=== PATIENT | male | born 1950 | race Caucasian/White ===

== ENCOUNTER 2019-04-06 07:31 | Day surgery (SDC) | payer MEDICARE, OTHER ==
[~2019-04-06 07:31] MED LIST: Dextrose 5%-0.45% NaCl 1,000 ML IV SCH; Midazolam 1 MG/ML 2 ML SDV ONE; fentaNYL 100 MCG/2 ML SDV ONE
[2019-04-06] MEDS ORDERED: fentaNYL 100 MCG/2 ML SDV IV ONE ×3 (07:32→08:01)
[2019-04-06] MEDS ORDERED: Midazolam 1 MG/ML 2 ML SDV IV ONE ×3 (07:32→08:02)
--- NOTE | 2019-04-06 14:38 | OR ---
DATE: 04/06/2019 PROCEDURE PERFORMED: Esophagogastroduodenoscopy and multiple pinch biopsies. INSTRUMENT USED: [id number]-[id number] Olympus video panendoscope. PREMEDICATIONS: Fentanyl 100 mcg intravenous and Versed 2 mg intravenous. The procedure was done under pulse oximetry, BP recording, and repair cameraman. INDICATION: The patient with long-standing heartburn, unexplained. Esophagogastroduodenoscopy is performed for detection of any active erosive lesions, Adams esophagus and/or malignancy also under consideration, H. pylori status to be determined, endoscopic hemostasis therapy if needed. DESCRIPTION OF PROCEDURE: The scope was passed with ease. Adequate visualization of the esophagus was made from proximal to distal areas. No upper esophageal lesions identified. No distal esophageal stricture. No uphill or downhill esophageal varices. No Addis-Grissom tear. No evidence of erosive esophagitis by Montgomery criteria. No esophageal polyp or tumor mass identified. Z-line was seen at around 40 cm distal to the oral verge, configuration consistent with grade 1 by ZAP classification. No proximal gastric varices noted. Gastric fundus examination by retroflexion showed no polypoid lesions. No gastric ulcer, malignant mass, or vascular ectasia identified. Less than 1 cm sized benign-appearing submucosal lesion was noted in the proximal antrum, multiple pinch biopsies were obtained and sent for histopathology. Duodenal bulb showed no ulcer. Visualized second part of the duodenum was unremarkable. Multiple pinch biopsies were taken from the gastric antrum, proximal body and sent for PyloriTek test for H. pylori and histopathology. No bleeding was noted from any of the visualized areas at the completion of examination. Photographs were taken of the duodenal bulb, gastric antrum, fundus, and distal esophagus. IMPRESSION: Gastric antral submucosal lesion. The patient tolerated the procedure well. [facility] /[id number]
[2019-04-06] MEDS ORDERED: Sodium Chloride 0.9% 10 ML Syringe FLUSH PRN (18:02)
--- NOTE | 2019-04-07 10:35 | EKG ---
04/06/2019 - LALA GUTIERREZ - Report reviewed. Rhythm one of atrial fibrillation with controlled ventricular rate. Q-waves in leads 2, 3, and AVF consistent with old inferior wall infarct. ST-T wave abnormalities of ischemia and/or digitalis effect noted. [facility] /[id number]
== END 2019-04-06 10:18 | disposition home or self-care (01) ==
LOC: DL.ENDO 07:31
PROVIDERS: ATTEND Internal Medicine Gastroenterology
DX: K29.50 Unspecified chronic gastritis without bleeding (principal); K21.9 Gastro-esophageal reflux disease without esophagitis; I10 Essential (primary) hypertension; E78.5 Hyperlipidemia, unspecified; M19.90 Unspecified osteoarthritis, unspecified site; E66.09 Other obesity due to excess calories; Z90.49 Acquired absence of other specified parts of digestive tract; Z79.899 Other long term (current) drug therapy; Z68.34 Body mass index [BMI] 34.0-34.9, adult
CPT/HCPCS: 43239; 87077; 93005; J2250; J3010; J7042

== ENCOUNTER → 2019-04-07 | Day surgery (SDC) | payer MEDICARE, OTHER ==
[~2019-04-07] MED LIST changes: +Midazolam 1 MG/ML 2 ML SDV IV ONE; +fentaNYL 100 MCG/2 ML SDV IV ONE
--- NOTE | 2019-04-07 13:23 | OR ---
DATE: 04/07/2019 PROCEDURE: Total colonoscopy. INSTRUMENT USED: [id number]-SP356M Olympus video colonoscope. PREMEDICATIONS: Fentanyl 100 mcg intravenous, Versed 3.5 mg intravenous, nasal O2 cannula. The procedure was done under pulse oximetry, BP recording, and spa therapist. INDICATION: The patient with progressive constipation, unexplained and not responsive to medical measures. Colonoscopic examination is done for detection of any polypoid lesions and removal, endoscopic hemostasis therapy if needed. DESCRIPTION OF PROCEDURE: Initial rectal exam was unremarkable. Rigid anoscopy showed small internal hemorrhoids without bleeding from them. The colonoscope was passed with ease up to the ileocecal area. Photographs were taken of the normal-appearing cecum identified by landmarks of appendiceal orifice and double- bulged ileocecal folds. No bleeding was noted from any of the visualized areas at the commencement of the examination. The bowel preparation was found to be adequate, [place] scale 2 in all the regions, total score of 6. No stricture. No vascular ectasia. No large isolated ulcerations seen. No evidence of diffuse inflammatory bowel disease in the form of friability, contact bleeding, or ulcerations. No polyp or tumor mass identified. Probing the proximal sides of folds and flexures using adequate distention and clearing up the stool material, withdrawal of the scope was made. Cecum to rectum time over 6 minutes. No bleeding was noted from any of the visualized areas at the completion of examination. IMPRESSION: Internal hemorrhoids. The patient tolerated the procedure well. [facility] /[id number]
== END | disposition home or self-care (01) ==
LOC: DL.ENDO 05:54
PROVIDERS: ATTEND Internal Medicine Gastroenterology
DX: K59.00 Constipation, unspecified (principal); K64.8 Other hemorrhoids
CPT/HCPCS: 45378; J2250; J3010; J7042; G0121

== ENCOUNTER 2020-01-01 16:09 | Emergency (ER) | payer MEDICARE, OTHER ==
--- NOTE | 2020-01-01 16:15 | EDM.PDOC ---
<Praker Lovell - Last Filed: 01/01/20 17:42> ED HPI GENERAL MEDICAL PROBLEM - General Chief Complaint: Chest Pain Stated Complaint: CHEST PAINS... Time Seen by Provider: 01/01/20 16:15 Source of Information: Reports: Patient, Old Records, RN, RN Notes Reviewed History Limitations: Reports: No Limitations - History of Present Illness INITIAL COMMENTS - FREE TEXT/NARRATIVE: Pt presents to ER from home by POV with c/o left sided chest pain coming and going about every 10 minutes on and off today. Denies exertional chest pain, shortness of breath, radiating pain, edema, palpitations, cough, or fever. He has a Hx of HTN, and chronic A-fib. anticoagulated with Coumadin. Current the pain is gone. Pain at max. intensity rated at 4/10. Denies Hx of NE, CAD, DM, or high cholesterol. Pt states he has been under a lot of stress since his unexpectedly one month ago. Onset: Today Duration: Intermittent, Recurring, Waxing/Waning Location: Reports: Chest Quality: Reports: Ache Severity: Mild Improves with: Reports: None Worsens with: Reports: None Associated Symptoms: Reports: No Other Symptoms Left Chest Pain Score (Numeric/FACES): 4 - Related Data Allergies Allergy/AdvReac Type Severity Reaction Status Date / Time No Known Allergies Allergy Verified 04/07/19 06:11 Home Meds: Home Meds amLODIPine Besylate [Amlodipine Besylate] 10 mg PO DAILY 02/20/18 [History] Multivitamin [Poly-Vitamin] 1 each PO DAILY 04/05/19 [History] Past Medical History - Past Health History Medical/Surgical History: Denies Medical/Surgical History HEENT History: Reports: None Cardiovascular History: Reports: Afib, Hypertension Respiratory History: Reports: None Gastrointestinal History: Reports: Chronic Constipation, Colon Polyp Genitourinary History: Reports: None Musculoskeletal History: Reports: Back Pain, Chronic, Fracture Other Musculoskeletal History: broke finger right hand ring Neurological History: Reports: None Psychiatric History: Reports: None Endocrine/Metabolic History: Reports: Obesity/BMI 30+, Other (See Below) Other Endocrine/Metabolic History: impaired fasting glucose Hematologic History: Reports: Other (See Below) Other Hematologic History: hyperuricemia Immunologic History: Reports: None Oncologic (Cancer) History: Reports: None Dermatologic History: Reports: None - Infectious Disease History Infectious Disease History: Reports: Measles - Past Surgical History HEENT Surgical History: Reports: None Cardiovascular Surgical History: Reports: None GI Surgical History: Reports: Cholecystectomy, Colonoscopy, EGD, Polypectomy Male Surgical History: Reports: None Endocrine Surgical History: Reports: None Musculoskeletal Surgical History: Reports: Knee Replacement Other Musculoskeletal Surgeries/Procedures:: bilateral knee replacement Dermatological Surgical History: Reports: None Social & Family History - Family History Family Medical History: Noncontributory - Tobacco Use Tobacco Use Status *Q: Never Tobacco User - Caffeine Use Caffeine Use: Reports: None - Alcohol Use Alcohol Use History: No - Recreational Drug Use Recreational Drug Use: No Drug Use in Last 12 Months: No - Living Situation & Occupation Living situation: Reports: , Alone ED ROS GENERAL - Review of Systems Review Of Systems: Comprehensive ROS is negative, except as noted in HPI. ED EXAM, GENERAL - Physical Exam Exam: See Below Exam Limited By: No Limitations General Appearance: Alert, No Apparent Distress, Anxious, Obese Eye Exam: Bilateral Eye: Normal Inspection Nose: Normal Inspection, Normal Mucosa, No Blood Throat/Mouth: Normal Inspection, Normal Lips, Normal Voice, No Airway Compromise Head: Atraumatic, Normocephalic Neck: Normal Inspection, Supple, Non-Tender, Full Range of Motion Respiratory/Chest: No Respiratory Distress, Lungs Clear, Normal Breath Sounds, No Accessory Muscle Use, Chest Non-Tender Cardiovascular: No Edema, No JVD, No Murmur, Irregularly Irregular GI/Abdominal: Normal Bowel Sounds, Soft, Non-Tender, No Organomegaly, No Distention, No Abnormal Bruit, No Mass Back Exam: Normal Inspection Extremities: Normal Inspection, Normal Range of Motion, Non-Tender, Normal Capillary Refill, No Pedal Edema Neurological: Alert, Oriented, CN II-XII Intact, Normal Cognition, Normal Gait, No Motor/Sensory Deficits Psychiatric: Normal Affect, Anxious Skin Exam: Warm, Dry, Intact, Normal Color, No Rash. No: Ecchymosis, Jaundice, Petechiae, Rash #1 Interpretation EKG Date: 01/01/20 Time: 16:20 Rhythm: A-Fib Rate (Beats/Min): 88 [place]: LAD-Left [place] Deviation P-Wave: Absent QRS: Other (Low voltage in frontal leads, RSR' V2) ST-T: Normal QT: Normal Comparison: No Change EKG Interpretation Comments: Chronic A-fib. No acute ischemic changes. Course - Radiology Interpretation Free Text/Narrative:: [facility] [place] [facility] Final Radiology Report Call: [phone] assistance Online chat: [email or web address] Name: LALA GUTIERREZ Age: 69Years M Date: 01/01/2020 SSN: -- : [id number] Study: CR CHEST 1V FRONTAL Requesting Physician: PARKER LOVELL Images: 1 Addl Studies: Provided Clinical History: chest pain Contrast: Contrast Medium: Contrast Amount: Contrast Method: CONFIDENTIALITY STATEMENT This report is intended only for use by the referring physician, and only in accordance with law. If you received this in error, call [phone]. Page 1 of 1 PROCEDURE INFORMATION: Exam: XR Chest, 1 View Exam date and time: 01/01/2020 5:13 PM Age: 69 years old Clinical indication: Other: Ches pain; Additional info: Chest pain TECHNIQUE: Imaging protocol: XR of the chest Views: 1 view. COMPARISON: No relevant prior studies available. FINDINGS: Lungs: Unremarkable. No consolidation. Pleural space: Unremarkable. No pleural effusion. No pneumothorax. Heart/Mediastinum: Unremarkable. No cardiomegaly. Bones/joints: Unremarkable. IMPRESSION: No acute findings. Thank you for allowing us to participate in the care of your patient. Dictated and Authenticated by: Shin Betancourt MD 01/01/2020 5:19 PM Central Time ([place] & [place]) - Re-Assessments/Exams Free Text/Narrative Re-Assessment/Exam: 01/01/20 17:43 Pt will be kept as extended ER with repeat Troponin and EKG at 2030HRS for chest pain rule out. Care of pt transferred to Dr. Rachel at 1900HR shift change. Departure - Departure Disposition: Home, Self-Care 01 Clinical Impression: Chest pain Qualifiers: Chest pain type: unspecified Qualified Code(s): R07.9 - Chest pain, unspecified Instructions: Chest Wall Pain, [id number] Forms: ED Department Discharge Additional Instructions: 1) rest 2) avoid lifting straining 3) try heat to sore area 4) try tylenol or motrin for discomfort 5) follow up at clinic for possible STRESS TEST, HOLTER MONITOR, ECHOCARDIOGRAM 6) recheck as needed <Chinedu Rachel - Last Filed: 01/01/20 21:44> Course - Vital Signs Last Recorded V/S: Last Vital Signs Temp 36.3 C 01/01/20 20:54 Pulse 73 01/01/20 20:54 Resp 17 01/01/20 21:33 BP 143/82 H 01/01/20 21:33 Pulse Ox 97 01/01/20 20:54 - Orders/Labs/Meds Orders: Active Orders 24 hr Category Date Time Status EKG 12 Lead [EKG Documentation Completion] [RC] STAT Care 01/01/20 16:16 Active EKG Documentation Completion [RC] ROUTINE Care 01/01/20 20:30 Active Peripheral IV Care [RC] . DIRECTED Care 01/01/20 16:31 Active Nitroglycerin [Nitrostat] Med 01/01/20 16:30 Active 0.4 mg SL Q5M PRN Sodium Chloride 0.9% [Saline Flush] Med 01/01/20 16:30 Active 10 ml FLUSH ASDIRECTED PRN Peripheral IV Insertion Adult [OM.PC] Stat Oth 01/01/20 16:31 Ordered Medication Orders Nitroglycerin (Nitrostat) 0.4 mg SL Q5M PRN PRN Reason: Chest Pain Last Admin: 01/01/20 21:31 Dose: 0.4 mg Documented by: BALLNOR Sodium Chloride (Saline Flush) 10 ml FLUSH ASDIRECTED PRN PRN Reason: Keep Vein Open Labs: Laboratory Tests 01/01/20 01/01/20 01/01/20 Range/Units 16:27 16:27 16:27 WBC 9.3 (5.0-10.0) 10^3/uL RBC 5.43 (4.6-6.2) 10^6/uL Hgb 16.8 (14.0-18.0) g/dL Hct 47.2 (40.0-54.0) % MCV 86.9 (80-100) fL MCH 30.9 (27.0-34.0) pg MCHC 35.6 H (33.0-35.0) g/dL Plt Count 236 (150-450) 10^3/uL Neut % (Auto) 64.4 (42.2-75.2) % Lymph % (Auto) 26.7 (20.5-50.1) % [place] % (Auto) 7.3 (2-8) % Eos % (Auto) 1.4 (1.0-3.0) % Baso % (Auto) 0.2 (0.0-1.0) % PT 25.5 H (9.0-12.0) SEC INR 2.7 H (0.9-1.2) APTT 33.4 (22.0-34.0) SEC D-Dimer, Quantitative < 100 (0-400) ng/mL Sodium 139 (136-145) mmol/L Potassium 3.6 (3.5-5.1) mmol/L Chloride 102 (98-107) mmol/L Carbon Dioxide 26 (21-32) mmol/L Anion Gap 14.6 H (7-13) mEq/L BUN 11 (7-18) mg/dL Creatinine 1.08 (0.70-1.30) mg/dL Est Cr Clr Drug Dosing 73.98 mL/min Estimated GFR (MDRD) > 60 BUN/Creatinine Ratio 10.2 (No establ ref range) Glucose 170 H (74-99) mg/dL Calcium 8.6 (8.5-10.1) mg/dL Total Bilirubin 0.8 (0.2-1.0) mg/dL AST 20 (15-37) U/L ALT 28 (16-63) U/L Alkaline Phosphatase 89 (46-116) U/L Troponin I < 0.017 (0.000-0.056) ng/mL Total Protein 7.2 (6.4-8.2) g/dL Albumin 3.4 (3.4-5.0) g/dL Globulin 3.8 Albumin/Globulin Ratio 0.9 Amylase 31 (25-115) U/L Lipase 86 (73-393) U/L //20 Range/Units 20:35 WBC (5.0-10.0) 10^3/uL RBC (4.6-6.2) 10^6/uL Hgb (14.0-18.0) g/dL Hct (40.0-54.0) % MCV (80-100) fL MCH (27.0-34.0) pg MCHC (33.0-35.0) g/dL Plt Count (150-450) 10^3/uL Neut % (Auto) (42.2-75.2) % Lymph % (Auto) (20.5-50.1) % [place] % (Auto) (2-8) % Eos % (Auto) (1.0-3.0) % Baso % (Auto) (0.0-1.0) % PT (9.0-12.0) SEC INR (0.9-1.2) APTT (22.0-34.0) SEC D-Dimer, Quantitative (0-400) ng/mL Sodium (136-145) mmol/L Potassium (3.5-5.1) mmol/L Chloride (98-107) mmol/L Carbon Dioxide (21-32) mmol/L Anion Gap (7-13) mEq/L BUN (7-18) mg/dL Creatinine (0.70-1.30) mg/dL Est Cr Clr Drug Dosing mL/min Estimated GFR (MDRD) BUN/Creatinine Ratio (No establ ref range) Glucose (74-99) mg/dL Calcium (8.5-10.1) mg/dL Total Bilirubin (0.2-1.0) mg/dL AST (15-37) U/L ALT (16-63) U/L Alkaline Phosphatase (46-116) U/L Troponin I < 0.017 (0.000-0.056) ng/mL Total Protein (6.4-8.2) g/dL Albumin (3.4-5.0) g/dL Globulin Albumin/Globulin Ratio Amylase (25-115) U/L Lipase (73-393) U/L Meds: Medications Generic Name Dose Route Start Last Admin Trade Name Freq PRN Reason Stop Dose Admin Nitroglycerin 0.4 mg 01/01/20 16:30 01/01/20 21:31 Nitrostat SL 0.4 mg Q5M PRN Administration Chest Pain Sodium Chloride 10 ml 01/01/20 16:30 Saline Flush FLUSH ASDIRECTED PRN Keep Vein Open Discontinued Medications Generic Name Dose Route Start Last Admin Trade Name Freq PRN Reason Stop Dose Admin Hydrocodone Bitart/Acetaminophen 1 tab 01/01/20 17:34 10/31/20 17:52 [place] 325-10 Mg PO 01/01/20 17:35 1 tab ONETIME ONE Administration Aspirin 324 mg 01/01/20 16:30 01/01/20 16:49 Aspirin PO 01/01/20 16:31 324 mg ONETIME ONE Administration - Re-Assessments/Exams Free Text/Narrative Re-Assessment/Exam: 01/01/20 21:17 repeat troponin negative, Departure - Departure Time of Disposition: 21:42 Sepsis Event Note (ED) - Focused Exam Vital Signs: Vital Signs Temp Pulse Resp BP BP Pulse Ox 01/01/20 21:33 17 143/82 H 01/01/20 21:31 144/82 H 01/01/20 20:54 36.3 C 73 16 144/92 H 97 01/01/20 19:12 36.3 C 85 18 131/77 95 01/01/20 18:04 36.3 C 81 18 133/80 98 01/01/20 16:19 36.4 C 89 18 147/82 H 98
[2020-01-01] MEDS ORDERED: Sodium Chloride 0.9% 10 ML Syringe FLUSH PRN (16:30)
[2020-01-01] MEDS ORDERED: Nitroglycerin 0.4 MG Tab.SL SL PRN (16:30)
[2020-01-01] MEDS ORDERED: Aspirin 81 MG Tab.Chew PO ONE (16:30)
[2020-01-01 16:56] LABS: ANION GAP 14.6 mEq/L (7-13); CHLORIDE,CL 102 mmol/L (98-107); SODIUM,NA 139 mmol/L (136-145)
[2020-01-01 17:02] LABS: PTT,PARTIAL THROMBOPLSTIN TIME 33.4 SEC (22.0-34.0)
--- NOTE | 2020-01-01 17:19 | CR ---
PROCEDURE INFORMATION: Exam: XR Chest, 1 View Exam date and time: 01/01/2020 5:13 PM Age: 69 years old Clinical indication: Other: Ches pain; Additional info: Chest pain TECHNIQUE: Imaging protocol: XR of the chest Views: 1 view. COMPARISON: No relevant prior studies available. FINDINGS: Lungs: Unremarkable. No consolidation. Pleural space: Unremarkable. No pleural effusion. No pneumothorax. Heart/Mediastinum: Unremarkable. No cardiomegaly. Bones/joints: Unremarkable. IMPRESSION: No acute findings.
[2020-01-01] MEDS ORDERED: Acetaminophen/HYDROcodone 325-10 MG Tab PO ONE (17:34)
== END 2020-01-01 22:20 | disposition home or self-care (01) ==
LOC: DL.ED 16:09
DX: R07.9 Chest pain, unspecified (principal); I10 Essential (primary) hypertension; I48.91 Unspecified atrial fibrillation; E66.9 Obesity, unspecified; Z68.33 Body mass index [BMI] 33.0-33.9, adult; Z90.49 Acquired absence of other specified parts of digestive tract; Z79.01 Long term (current) use of anticoagulants; Z79.899 Other long term (current) drug therapy
CPT/HCPCS: 36415; 71045; 80053; 82150; 83690; 84484; 85025; 85379; 85610; 85730; 93005; 99285; A9270

== ENCOUNTER 2021-07-23 07:08 | Emergency (ER) | payer MEDICARE, OTHER ==
[2021-07-23 08:19] LABS: ANION GAP 15.9 mEq/L (7-13); CHLORIDE,CL 105 mmol/L (98-107); SODIUM,NA 143 mmol/L (136-145)
[2021-07-23 08:22] LABS: PTT,PARTIAL THROMBOPLSTIN TIME 32.3 SEC (22.0-34.0)
[2021-07-23 08:42] LABS: CORONAVIRUS COVID-19 NAA NEGATIVE (NEGATIVE); RESPIRATORY SYNCYTIAL VIR NAA NEGATIVE (NEGATIVE)
== END 2021-07-23 09:05 | disposition home or self-care (01) ==
LOC: DL.ED 07:08
DX: I48.91 Unspecified atrial fibrillation (principal); R79.0 Abnormal level of blood mineral; D58.2 Other hemoglobinopathies; I10 Essential (primary) hypertension; E66.9 Obesity, unspecified; Z68.36 Body mass index [BMI] 36.0-36.9, adult; Z79.01 Long term (current) use of anticoagulants; Z90.49 Acquired absence of other specified parts of digestive tract; Z79.899 Other long term (current) drug therapy; Z20.822 Contact with and (suspected) exposure to COVID-19
CPT/HCPCS: 0241U; 36415; 71045; 80053; 80307; 82150; 83605; 83690; 83880; 84484; 85025; 85610; 85730; 86140; 93005; 99284

== ENCOUNTER 2022-01-01 10:01 | Emergency (ER) | payer MEDICARE, OTHER | END 2022-01-01 10:42 | disposition home or self-care (01) | LOC: DL.ED 10:01 | DX: U07.1 COVID-19 (principal); I10 Essential (primary) hypertension; E66.9 Obesity, unspecified; Z68.34 Body mass index [BMI] 34.0-34.9, adult; Z79.899 Other long term (current) drug therapy; Z79.01 Long term (current) use of anticoagulants; Z90.49 Acquired absence of other specified parts of digestive tract | CPT/HCPCS: 99283 ==

== ENCOUNTER 2024-03-12 08:49 | Emergency (ER) | payer MEDICARE, OTHER ==
[2024-03-12 09:26] LABS: BASOPHILS PERCENT AUTO 0.2 % (0.0-1.0); EOSINOPHILS PERCENT AUTO 1.5 % (1.0-3.0); HEMATOCRIT 50.4 % (40.0-54.0); HEMOGLOBIN 17.8 g/dL (14.0-18.0); LYMPHOCYTES PERCENT AUTO 49.6 % (20.5-50.1); MEAN CORPUSCULAR HEMOGLOBIN 33.1 pg (27.0-34.0); MEAN CORPUSCULAR HGB CONC 35.3 g/dL (33.0-35.0); MEAN CORPUSCULAR VOLUME 93.7 fL (80-100); MONOCYTES PERCENT AUTO 12.1 % (2-8); NEUTROPHILS PERCENT AUTO 36.6 % (42.2-75.2); PLATELET COUNT,PLT 151 10^3/uL (150-450); RED BLOOD CELL COUNT 5.38 10^6/uL (4.6-6.2); WHITE BLOOD CELL COUNT,WBC 4.7 10^3/uL (5.0-10.0)
[2024-03-12 09:46] LABS: A/G RATIO 0.9; ALBUMIN 3.4 g/dL (3.4-5.0); ANION GAP 13.8 mEq/L (7-13); BILIRUBIN TOTAL 0.8 mg/dL (0.2-1.0); BUN/CREATININE RATIO 11.7 (No establ ref range); CALCIUM 8.9 mg/dL (8.5-10.1); CREATININE 0.94 mg/dL (0.70-1.30); EST CRCL DRUG DOSING (CG) 77.97 mL/min; POTASSIUM,K 3.8 mmol/L (3.5-5.1)
== END 2024-03-12 10:00 | disposition home or self-care (01) ==
LOC: DL.ED 08:49
DX: J06.9 Acute upper respiratory infection, unspecified (principal); I48.91 Unspecified atrial fibrillation; E66.9 Obesity, unspecified; Z68.32 Body mass index [BMI] 32.0-32.9, adult; Z90.49 Acquired absence of other specified parts of digestive tract; Z96.659 Presence of unspecified artificial knee joint; Z86.16 Personal history of COVID-19; Z79.01 Long term (current) use of anticoagulants; Z79.899 Other long term (current) drug therapy
CPT/HCPCS: 36415; 71046; 80053; 85025; 87428-QW; 99285

== ENCOUNTER 2024-12-18 22:22 | Emergency (ER) | payer MEDICARE ==
[2024-12-18 23:09] LABS: BASOPHILS PERCENT AUTO 0.3 % (0.0-1.0); EOSINOPHILS PERCENT AUTO 2.8 % (1.0-3.0); LYMPHOCYTES PERCENT AUTO 27.2 % (20.5-50.1); MONOCYTES PERCENT AUTO 7.9 % (2-8); NEUTROPHILS PERCENT AUTO 61.8 % (42.2-75.2); PLATELET COUNT,PLT 216 10^3/uL (150-450); RED BLOOD CELL COUNT 5.61 10^6/uL (4.6-6.2); WHITE BLOOD CELL COUNT,WBC 9.7 10^3/uL (5.0-10.0)
[2024-12-18] MEDS: fentaNYL 100 MCG/2 ML SDV IVPUSH ONE (23:24)
[2024-12-18 23:30] LABS: A/G RATIO 1.0; ALANINE AMINOTRANSFERASE,ALT 46.0 U/L (16-63); ASPARTATE AMNIOTRANSFERASE,AST 33.0 U/L (15-37); BILIRUBIN TOTAL 1.3 mg/dL (0.2-1.0); BLOOD UREA NITROGEN,BUN 14.0 mg/dL (7-18); CARBON DIOXIDE,CO2 25.0 mmol/L (21-32); CHLORIDE,CL 107.0 mmol/L (98-107); CREATININE 0.8 mg/dL (0.70-1.30); EST CRCL DRUG DOSING (CG) 92.94 mL/min; ESTIMATED GFR 93.0 mL/min (>=60); GLUCOSE RANDOM 138.0 mg/dL (70-99); POTASSIUM,K 4.0 mmol/L (3.5-5.1); PROTEIN TOTAL,TP 7.4 g/dL (6.4-8.2); SODIUM,NA 143.0 mmol/L (136-145)
[2024-12-18 23:34] LABS: APPEARANCE,URINE SLIGHTLY CLOUDY (CLEAR); GLUCOSE,URINE NEGATIVE (NEGATIVE); OCCULT BLOOD,URINE LARGE (NEGATIVE)
[2024-12-18 23:41] LABS: SQUAMOUS EPITHELIAL CELLS,UR RARE /HPF (NOT SEEN)
[2024-12-19] MEDS: Acetaminophen/HYDROcodone 325-10 MG Tab PO ONE (00:39)
[2024-12-19] MEDS: Take Home: Acetaminophen/HYDROcodone 325-5 MG, 5 Tab Pack PO ONE (02:00)
== END 2024-12-19 02:10 | disposition home or self-care (01) ==
LOC: DL.ED 22:22
DX: N20.0 Calculus of kidney (principal); I48.91 Unspecified atrial fibrillation; I11.0 Hypertensive heart disease with heart failure; I50.9 Heart failure, unspecified; E66.9 Obesity, unspecified; Z86.16 Personal history of COVID-19; Z79.01 Long term (current) use of anticoagulants; Z90.49 Acquired absence of other specified parts of digestive tract; Z68.33 Body mass index [BMI] 33.0-33.9, adult
CPT/HCPCS: 36415; 80053; 81001; 85025; 93005; 96374; 99284-25; A9270-GY; J3010